=== PATIENT | female | born 2005 | race Caucasian/White ===

== ENCOUNTER 2023-11-08 14:30 | Emergency (ER) | payer OTHER ==
[~2023-11-08] VITALS: Ht 162.6 cm; Wt 76.6 kg
[~2023-11-08 14:30] MED LIST: ACETAMINOPHEN-118 M1 PO; ACETAMINOPHEN325 M1 PO; AUGMENTIN600 MG/5 M PO; AURALGAN EAR DR14 ML AS; CEPHALEXIN250 MG/5 M PO; CORTISPORIN EAR10 M1 AS; MACROBID 100 M100 MG PO; ONDANSETRON ODT8 MG PO
--- OUTSIDE RECORDS SUMMARY | 2023-11-08 14:36 | XMS ---
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 Shima VISIT COUNT (12 MO.) 2 KAMERON Munguia TOTAL 2 NOTE: Visits indicate total known visits. ED/UCC VISIT TRACKING (12 MO.) 11/08/2023 14:30 K[facility] Parikh OR TYPE: Emergency COMPLAINT: - MEDICATION REACTION 11/05/2023 21:10 [facility] Par[facility] OR TYPE: Emergency COMPLAINT: - ABDOMINAL PAIN DIAGNOSES: - Lower abdominal pain, unspecified - Urinary tract infection, site not specified INPATIENT VISIT TRACKING (12 MO.) No inpatient visits to display in this time frame [email or web address]
[2023-11-08] MEDS ORDERED: CIPRO500 MG PO (14:51)
[2023-11-08 14:56] VITALS: BP 130/81
== END 2023-11-08 14:56 | disposition home or self-care (01) ==
LOC: ED 14:30
DX: N39.0 Urinary tract infection, site not specified (principal); Z79.899 Other long term (current) drug therapy
CPT/HCPCS: 99283

== ENCOUNTER 2024-01-02 13:07 | Emergency (ER) | payer OTHER ==
[~2024-01-02] VITALS: Ht 162.6 cm; Wt 76.0 kg
[~2024-01-02 13:07] MED LIST changes: +CIPRO500 MG PO
[2024-01-02 14:27] LABS: BILIRUBIN, URINE NEGATIVE (negative); BLOOD/HGB, URINE NEGATIVE (Negative); KETONE, URINE NEGATIVE (Negative); LEUK ESTERASE, URINE SMALL (negative); NITRITE, URINE NEGATIVE (negative)
[2024-01-02 14:33] LABS: BACTERIA, URINE RARE /hpf (negative); CASTS, URINE NONE SEEN \\lpf; COLLECTION TYPE, URINE CLEAN CATCH; CRYSTALS, URINE NONE SEEN (0-1+); EPITHELIAL CELLS, URINE SQUAMOUS 1+ /lpf (0-1+); REFLEX CULTURE, URINE Yes (No)
[2024-01-02] MEDS ORDERED: CEFDINIR300 MG PO (15:57)
[2024-01-02] MEDS ORDERED: CEFDINIR 300 MG CAP PO ONE (16:00)
[2024-01-02 16:03] VITALS: BP 120/76
== END 2024-01-02 16:04 | disposition home or self-care (01) ==
LOC: ED 13:07
PROVIDERS: Emergency Medicine
DX: N39.0 Urinary tract infection, site not specified (principal); Z88.1 Allergy status to other antibiotic agents; Z87.440 Personal history of urinary (tract) infections; Z86.16 Personal history of COVID-19
CPT/HCPCS: 81001; 84703; 87088; 99283

== ENCOUNTER 2024-01-29 10:27 | Emergency (ER) | payer OTHER ==
[~2024-01-29] VITALS: Ht 162.6 cm; Wt 74.4 kg
[~2024-01-29 10:27] MED LIST changes: +CEFDINIR300 MG PO
--- OUTSIDE RECORDS SUMMARY | 2024-01-29 10:34 | XMS ---
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 Shima VISIT COUNT (12 MO.) 4 KAMERON Munguia TOTAL 4 NOTE: Visits indicate total known visits. 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
[2024-01-29] MEDS ORDERED: ONDANSETRON 4 MG TAB ODT SL ONE (11:00)
[2024-01-29 11:41] LABS: BILIRUBIN, URINE NEGATIVE (negative); BLOOD/HGB, URINE NEGATIVE (Negative); KETONE, URINE NEGATIVE (Negative); LEUK ESTERASE, URINE NEGATIVE (negative); NITRITE, URINE NEGATIVE (negative)
[2024-01-29 12:39] LABS: BASOPHILS 0.8 % (0-2); EOSINOPHILS 0.6 % (0-6); HEMATOCRIT 42.1 % (35.0-50.0); HEMOGLOBIN 14.5 g/dL (12.0-18.0); LYMPHOCYTES 21.2 % (24-44); MCH 31.3 (27-36); MCHC 34.3 g/dl (30-36); MCV 91.2 fl (81-99); MONOCYTES 7.4 % (0-12); PLATELET COUNT 267 K/uL (140-440); RBC 4.62 M/ul (4.3-5.7); RDW 13.4 (10.5-15.0)
[2024-01-29 12:59] LABS: ALBUMIN 3.9 g/dL (3.4-5.0); ALBUMIN/GLOBULIN RATIO 1.15 (1.1-2.4); ANION GAP 13.7 (7-21); BILIRUBIN, TOTAL 0.6 ng/dL (0.2-1.0); BUN/CREATININE RATIO 12.16 (6.0-28.6); CALCIUM 9.1 mg/dL (8.5-10.1); CREATININE, SERUM 0.74 mg/dL (0.55-1.02); POTASSIUM 3.7 mmol/L (3.5-5.1); PROTEIN, TOTAL 7.3 g/dL (6.4-8.2)
[2024-01-29 13:28] VITALS: BP 124/72
== END 2024-01-29 13:29 | disposition home or self-care (01) ==
LOC: ED 10:27
PROVIDERS: Emergency Medicine
DX: R10.11 Right upper quadrant pain (principal); R30.0 Dysuria; R35.0 Frequency of micturition; Z88.1 Allergy status to other antibiotic agents
CPT/HCPCS: 36415; 80053; 81003; 83690; 84703; 85025; 99284; A9270

== ENCOUNTER 2024-04-21 23:34 | Emergency (ER) | payer OTHER ==
[~2024-04-21] VITALS: Ht 162.6 cm; Wt 75.0 kg
[2024-04-21] MEDS ORDERED: ONDANSETRON 4 MG TAB ODT SL ONE (23:45)
[2024-04-21 23:54] LABS: BILIRUBIN, URINE NEGATIVE (negative); BLOOD/HGB, URINE NEGATIVE (Negative); KETONE, URINE NEGATIVE (Negative); LEUK ESTERASE, URINE NEGATIVE (negative); NITRITE, URINE NEGATIVE (negative)
[2024-04-21] MEDS ORDERED: CRANBERRY200 MG (23:54)
[2024-04-22] MEDS ORDERED: MIRALAX17 GM PO (00:39)
[2024-04-22] MEDS ORDERED: FLUCONAZOLE150 MG PO (00:44)
[2024-04-22 00:48] LABS: BASOPHILS 0.8 % (0-2); EOSINOPHILS 0.7 % (0-6); HEMATOCRIT 43.5 % (35.0-50.0); HEMOGLOBIN 15.1 g/dL (12.0-18.0); LYMPHOCYTES 27.9 % (24-44); MCH 31.6 (27-36); MCHC 34.7 g/dl (30-36); MCV 91.1 fl (81-99); MONOCYTES 5.5 % (0-12); NEUTROPHILS 65.1 % (39-80); PLATELET COUNT 296 K/uL (140-440); RBC 4.78 M/ul (4.3-5.7); RDW 13.2 (10.5-15.0)
[2024-04-22 01:03] LABS: ALBUMIN 4.2 g/dL (3.4-5.0); ALBUMIN/GLOBULIN RATIO 1.24 (1.1-2.4); ANION GAP 13.8 (7-21); BILIRUBIN, TOTAL 0.3 mg/dL (0.2-1.0); BUN/CREATININE RATIO 19.4 (6.0-28.6); CALCIUM 9.2 mg/dL (8.5-10.1); CREATININE, SERUM 0.67 mg/dL (0.55-1.02); POTASSIUM 3.8 mmol/L (3.5-5.1); PROTEIN, TOTAL 7.6 g/dL (6.4-8.2)
[2024-04-22] MEDS ORDERED: MAGNESIUM CITRATE 300 ML BTL PO ONE (01:15)
[2024-04-22 01:20] LABS: N. GONORRRHOEAE BY PCR NOT DETECTED (NOT DETECT)
[2024-04-22 01:22] VITALS: BP 125/82
== END 2024-04-22 01:23 | disposition home or self-care (01) ==
LOC: ED 23:34
PROVIDERS: Family Medicine
DX: K59.00 Constipation, unspecified (principal); L29.89 Other pruritus; Z88.8 Allergy status to other drugs, medicaments and biological substances; Z79.899 Other long term (current) drug therapy
CPT/HCPCS: 36415; 74018; 80053; 81003; 84703; 85025; 99284; A9270

== ENCOUNTER 2024-07-19 09:10 | Emergency (ER) | payer OTHER ==
[~2024-07-19] VITALS: Ht 162.6 cm; Wt 76.5 kg
[~2024-07-19 09:10] MED LIST changes: +CRANBERRY200 MG; +FLUCONAZOLE150 MG PO; +MIRALAX17 GM PO
[2024-07-19] MEDS ORDERED: VENTOLIN HFA18 GM (09:26)
[2024-07-19] MEDS ORDERED: QUETIAPINE FUM100 MG PO (09:26)
[2024-07-19] MEDS ORDERED: EPINEPHRIN0.3 MG/0.3 IM (09:27)
[2024-07-19] MEDS ORDERED: diphenhydrAMINE HCL 50 MG CAP PO ONE (09:30)
[2024-07-19 09:47] VITALS: BP 128/81
== END 2024-07-19 09:48 | disposition home or self-care (01) ==
LOC: ED 09:10
DX: T78.49XA Other allergy, initial encounter (principal); J45.909 Unspecified asthma, uncomplicated; Z88.8 Allergy status to other drugs, medicaments and biological substances
CPT/HCPCS: 99283; Q0163